=== PATIENT | male | born 1985 | race African-American/Black ===

== ENCOUNTER 2017-06-01 02:29 | Inpatient (IN) | payer OTHER ==
[~2017-06-01] VITALS: Ht 188 cm; Wt 83.0 kg
[~2017-06-01 02:29] MED LIST: ADA30 PO; APR10 PO; COLACE100 MG PO; CORE25 PO; HYDROCHLOROTH12.5 MG PO; NORCO1 TA2 PO; ZESTRIL40 MG PO
--- NOTE | 2017-06-01 03:10 | NUR ---
PT AWARE OF NEED FOR URINE SAMPLE, UNABLE TO PROVIDE URINE AT THIS TIME. URINAL LEFT AT BEDSIDE.
--- NOTE | 2017-06-01 03:15 | NUR ---
PT PRESENTS TO ED WITH C/O LUQ ABD PAIN X1 DAY. PT REPORTS VOMITING, DENIES DIARRHEA OR CONSTIPATION. PT REPORTS HX OF PANCREATITIS. PT STATES HE BINGE DRINKS AND LAST DRINK HE HAD WAS YESTERDAY MORNING. RESPIRATIONS EVEN AND UNLABORED. NO ACUTE DISTRESS NOTED. BED IN LOW POSITION. CALL LIGHT WITHIN REACH.
[2017-06-01 03:34] LABS: CALCIUM 8.8 mg/dL (8.5-10.1); CARBON DIOXIDE 29.9 mmol/L (21-32); CHLORIDE SERUM 103 mmol/L (98-107); CREATININE SERUM 1.1 mg/dL (0.7-1.3); GFR1 > 60 mL/min; GLUCOSE SERUM 131 mg/dL (74-106); POTASSIUM SERUM 3.8 mmol/L (3.5-5.1); SODIUM SERUM 142 mmol/L (136-145)
[2017-06-01 03:39] LABS: ALBUMIN 4.1 g/dL (3.4-5.0); ALKALINE PHOSPHATASE 58 U/L (46-116); ALT/SGPT 87 U/L (16-63); AST/SGOT 112 U/L (15-37); BILIRUBIN TOTAL 0.5 mg/dL (0.20-1.00); LIPASE 568 IU/L (73-393)
[2017-06-01 03:51] LABS: BASOPHIL % 0.5 % (0-2); PLATELET COUNT 185 x10^3mcL (130-400)
--- NOTE | 2017-06-01 03:52 | NUR ---
PT C/O ABD PAIN 07/31. MD NOTIFIED, WILL MEDICATE PER MD ORDERS.
--- NOTE | 2017-06-01 04:09 | NUR ---
PT STATES NOT TAKING ANY HOME MEDS AT THIS TIME.
--- NOTE | 2017-06-01 05:14 | NUR ---
PT TO CT SCAN VIA GURNEY, NO ACUTE DISTRESS NOTED.
--- NOTE | 2017-06-01 05:27 | NUR ---
RESIDENT NOTIFIED OF PT BP, NO FURTHER ORDERS AT THIS TIME.
[2017-06-01 05:30] LABS: PHOSPHOROUS 4.2 mg/dL (2.5-4.9)
[2017-06-01 05:35] LABS: CHOLESTEROL/HDL RATIO 1.7; T3 TOTAL 0.96 ng/mL
[2017-06-01 05:39] VITALS: BP 165/104
[2017-06-01 05:45] LABS: FREE T4 1.11 ng/dL (0.76-1.46); FREE THYROXINE INDEX 2.9 ug/dL (1.4-4.5); T4(THYROXINE) 7.3 ug/dL (4.7-13.3)
[2017-06-01 06:14] VITALS: BP 165/104
--- NOTE | 2017-06-01 06:21 | NUR ---
NEWLY ADMITTED 31 YEARS OLD, ALERT AND ORIENTED, PLEASANT AND COOPERATIVE. STILL C/O ABDOMINAL PAIN 05/30 AND PT STATED HE IS NAUSEAUS ALSO WANTED PAIN MEDICATIONS AND FOR NAUSEA. PT STATED HE DRINKS ALCOHOL BUT DO NOT SMOKE ACCORDING TO PT. LUNGS CLEAR ON AUCULTATIONS BILATERALLY UPPER AND LOWER BASES. BOWEL SOUNDS ACTIVE AND PRESENT, NO DISTENTION, NOTED HE HAS TATTOOS OVER HIS BODY. HEPLOCK IN THE RIGHT AC. PATENT AND INTACT. MADE COMFORTABLE IN BED. CALL LIGHT WITHIN EASY REACH.
--- NOTE | 2017-06-01 06:34 | NUR ---
C/O ABDOMINAL PAIN 05/30. MEDICATED WITH MORPHINE 2 MG IVPUSH. WILL MONITOR.
--- NOTE | 2017-06-01 07:00 | NUR ---
STARTED IV NS AT 150 ML PER HOUR INFUSING WELL IN THE RIGHT FOREARM ANGIOCATH GUAGE 20 PATENT AND INTACT, ATIVAN 1 MG PO FOR ETOH PROTOCOL AND ALSO RECEIVED MRPHINE 2 MG IVPUSH. WILL MONITOR.
--- NOTE | 2017-06-01 07:10 | NUR ---
REPORT RECEIVED FROM NOC SHIFT RN. UPDATES PROVIDED, ALL QUESTIONS ANSWERED ALL CONCERNS ADDRESSED. WILL CONTINUE TO MONITOR PATIENT.
--- NOTE | 2017-06-01 07:20 | NUR ---
PATIENT ASSESSED AT THIS TIME. PATIENT IS CALMY LYING IN BED. NO DISTRESS NOTED, PATIENT IS ON ROOM AIR, IS NPO EXCEPT MEDS. IV TO RAC NOTED WITH NS AT 150 ML/HR INFUSING, SITE PATENT DRESSING CDI. PATIENT IS ALERT AND ORIENTED X4, PUPILS ARE 3 MM AND BRISK BILATERALLY. PATIENT HAS NO HX OF CVA OR ALZHEIMERS AND NO SEDATION AT THIS TIME. PATIENT TRACHEA IS MIDLINE, NO SCLERAL EDEMA NOTED, NO SUPPLEMENTAL OXYGEN OR TUBE FEEDING IN PLACE. PATIENT LUNG SOUNDS ARE CLEAR ALEJANDRO, CHEST RISES SYMMETRICALLY, PATIENT ABDOMEN IS SOFT AND ROUND AND EXHIBITS PAIN TO EPIGASTRIC AREA 3/10. THIS IS A TOLERABLE PAIN LEVEL FOR PATIENT. BOWEL SOUNDS ARE ACTIVE IN ALL 4 QUADRANTS. NO BM NOTED AT THIS TIME, PATIENT IS VOIDING TO HANDHELD URINAL, NO URINE NOTED. PATIENT HAS ACTIVE ROM TO ALL EXTREMITIES, NO OBVIOUS CONTRACTURES OR DEFORMITIES NOTED.
--- NOTE | 2017-06-01 07:34 | NUR ---
ULTRASOUND BEDSIDE FOR BLE VENOUS AND ARTERIAL STUDY. WILL CONTINUE TO MONITOR PATIENT.
--- NOTE | 2017-06-01 07:45 | NUR ---
DR TATUM IS ROUNDING WITH RESIDENTS AT THIS TIME. UPDATES PROVIDED, NO NEW ORDERS RECEIVED. WILL CONTINUE TO MONITOR PATIENT.
[2017-06-01 07:47] LABS: UA SPECIFIC GRAVITY >=1.030 (1.005-1.035); microscopic required? YES; urine erythrocyte NEGATIVE (NEGATIVE)
--- NOTE | 2017-06-01 08:00 | NUR ---
PATIENT RHYTHM IS NSR AT THIS TIME. WILL CONTINUE TO MONITOR PATIENT.
[2017-06-01 08:10] LABS: AMPHETAMINE QUAL UR NONE DETECTED (NEG <=1000)
--- NOTE | 2017-06-01 09:33 | NUR ---
PATIENT IS COMPLAINING OF 9/10 PAIN AT THIS TIME IN THE EPIGASTRIC REGION, MORPHINE 2 MG IS DUE AND IS TO BE GIVEN. WILL CONTINUE TO MONITOR PATIENT.
--- NOTE | 2017-06-01 10:21 | NUR ---
I HAVE REVIEWED THE DATA COLLECTION BY RN (NAME):MARIUSZ ANDERSEN ENTERED ON (DATE/TIME):06/01/17 1030 I CONCUR WITH THE DATA AND ANY EXCEPTIONS OR COMMENTS ARE LISTED BELOW:
[2017-06-01 11:04] VITALS: BP 170/104
--- NOTE | 2017-06-01 14:25 | NUR ---
PATIENT REQUESTING TO SPEAK W/MD REGARDING PAIN MEDICATION, DR VILLARREAL PAGED.
[2017-06-01 14:32] VITALS: BP 164/109
--- NOTE | 2017-06-01 14:43 | NUR ---
DR VILLARREAL AT BEDSIDE TO DISCUSS PAIN MEDS PER PT'S REQUEST, PT ASLEEP, AROUSABLE TO LIGHT TOUCH, DROWSY, MD WILL RETURN AT LATER TIME.
--- NOTE | 2017-06-01 15:53 | NUR ---
DR NYE AT BEDSIDE TO EVALUATE, WILL F/U WITH NEW OR CHANGED ORDERS.
--- NOTE | 2017-06-01 15:58 | NUR ---
AWAKE AND ALERT, REQUESTING PAIN MED FOR ABD PAMELLA 5/10, WILL ADMIN ORDERED, CALL LIGHT WITHIN REACH, WILL CONTINUE TO MONITOR FOR SAFETY AND ADEQUATE PAIN CONTROL. .
--- NOTE | 2017-06-01 17:32 | NUR ---
PT REPORTS BEING HYPERTENSIVE FOR ABOUT 9YRS, DOES NOT TAKE ANY MEDICATIONS AT HOME, IS ASYMPTOMATIC, DR VILLARREAL CONSULTED REGARDING CURRENT BP 170/112, HR 82, MD WILL ENTER NEW ORDERS, WILL PROCEED ACCORDINGLY.
[2017-06-01 17:33] VITALS: BP 170/112
--- NOTE | 2017-06-01 18:35 | NUR ---
RESTIG IN BED, AROUSABLE TO LIGHT NOISE, REPORTS CONTINUED LUQ PAIN, PAIN MEDS ARE HELPING, CURRENT LEVEL IS 3/10, DENIES S&S OF HYPERTENSION, NEW BP MED ORDERS ENTERED, WILL ENDORSE CARE TO NIGHT NURSE.
--- NOTE | 2017-06-01 19:47 | NUR ---
C/O ABDL PAIN 07/31 DURING INITIAL ROUNDS ASKING FOR DILAUDID STATED THAT MORPHINE NOT HELPING MUCH, MD ALREADY AWARE AWAITING FOR ORDERS, PT WANTED TO HAVE MORPHINE WHILE WAITING FOR DILAUDID TO BE ORDERED, DENIES NAUSEA OR VOMITING, MORPHINE GIVEN INDICATED, WILL FOLLOW UP MD RE CHANGES OF PAIN MEDICATION ORDER.
--- NOTE | 2017-06-01 20:23 | NUR ---
PAGED DR RUIZ RE PT'S REQUEST TO GET DILAUDID FOR PAIN INSTEAD OF MORPHINE, DR RUIZ CALLED BACK AND SHE WILL TALK TO THE PT FIRST BEFORE MAKING ANY CHANGES, SHIFT ASSESSMENT DONE, PT IS AAO X4 VERBAL, NO DISTRESS, SR IN THE MONITOR, REFUSED SCD'S FOR DVT PROPHYLAXIS, IVF NS INFUSING @ 150CC/HR RFA, IV ACCESS PATENT NON INFIL, ATTENDED NEEDS CALL LIGHT AT REACH CONT TO MONITOR.
[2017-06-01 21:43] VITALS: BP 170/104
--- NOTE | 2017-06-01 22:09 | NUR ---
DILAUDID 0.5 MG IVP GIVEN FOR C/O ABDL PAIN 8/10 PER ASSESSMENT BP 170/100 ASYMTOMATIC, CONT TO MONITOR.
--- NOTE | 2017-06-02 02:15 | NUR ---
UNABLE TO GIVE COREG PO X1 DOSE @ 2230 PT IS ASLEEP JUST RECEIVED DILAUDID IVP EARLIER, WILL OFFER AGAIN LATER WHEN AWAKE.
--- NOTE | 2017-06-02 02:17 | NUR ---
UNABLE TO GIVE COREG PO @ 2230 PT IS ASLEEP JUST RECEIVED IVP DILAUDID @ 2200 PT AWAKE AT THIS TIME BP STILL ABOVE 160'S HR 78 COREG PO GIVEN X1 DOSE INDICATED.
--- NOTE | 2017-06-02 05:31 | NUR ---
JUST MEDICATED FOR ABLD PAIN 6/10 PER ASSESSMENT NOT IN ANY DISTRESS, CONT TO MONITOR.
--- NOTE | 2017-06-02 05:53 | NUR ---
BP 170/119 RECHECKED X2 STILL ON THE HIGH SIDE, JUST MEDICATED FOR PAIN WITH DILAUDID IVP, REPOSITIONED TO COMFORT, HYDRALAZINE IVP GIVEN PER PRN ORDER CONT TO MONITOR.
[2017-06-02 05:55] VITALS: BP 170/119
[2017-06-02 06:20] LABS: CALCIUM 8.8 mg/dL (8.5-10.1); CARBON DIOXIDE 22.7 mmol/L (21-32); CHLORIDE SERUM 96 mmol/L (98-107); CREATININE SERUM 0.8 mg/dL (0.7-1.3); GFR1 > 60 mL/min; GLUCOSE SERUM 110 mg/dL (74-106); LACTIC DEHYDROGENASE (LDH) 166 U/L (100-190); LIPASE 1009 IU/L (73-393); POTASSIUM SERUM 3.5 mmol/L (3.5-5.1); SODIUM SERUM 133 mmol/L (136-145)
[2017-06-02 06:26] LABS: AMYLASE 145 U/L (25-115)
[2017-06-02 06:46] VITALS: BP 147/97
--- NOTE | 2017-06-02 06:51 | NUR ---
PT FEELING NAUSEOUS NO VOMITING AT THIS TIME, ZOFRAN 4MG IVP GIVEN PER PRN ORDER, REPOSITIONED FOR COMFORT, RECHECKED BP AFTER GIVING HYDRALAZINE IV BP 147/97 (MAP 113) hr 82, CONT TO MONITOR.
--- NOTE | 2017-06-02 07:10 | NUR ---
REPORT RECEIVED FROM NOC SHIFT RN. UPDATES PROVIDED, ALL QUESTIONS ANSWERED ALL CONCERNS ADDRESSED. WILL ASSUME CARE AND ASSESS SHORTLY.
--- NOTE | 2017-06-02 07:45 | NUR ---
PATIENT IS RESTING CALMLY IN BED AT THIS TIME. PATIENT IS ON ROOM AIR, NPO WITH N/V NOTED. PATIENT HAS IV TO RIGHT FOREARM WITH NS AT 150 ML/HR RUNNING. PUPILS ARE 2 MM AND BRISK BILATERALLY, PULSES ARE STRONG ALEJANDRO, CAP REFILL IS <3 SECONDS ALEJANDRO, LUNGS ARE CLEAR ALEJANDRO, CHEST RISES SYMMETRICALLY. SKIN IS WARM AND DRY. PATIENT HAS ACTIVE ROM TO ALL EXTREMITIES AND IS ABLE TO AMBULATE. PATIENT IS REQUESTING PAIN MEDS. WILL CONTINUE TO MONITOR.
--- NOTE | 2017-06-02 07:55 | NUR ---
PATIENT VOMITED AT THIS TIME, 200 ML NOTED. ZOFRAN GIVEN 1 HOUR AGO. WILL CONTINUE TO MONITOR PATIENT.
--- NOTE | 2017-06-02 08:52 | NUR ---
DR. TATUM ROUNDING WITH RESIDENTS AT THIS TIME. UPDATES PROVIDED, PATIENT TO CONTINUE ON NPO EXCEPT MEDS STATUS. WILL CONTINUE TO MONITOR PATIENT.
[2017-06-02 11:25] VITALS: BP 117/112
--- NOTE | 2017-06-02 11:26 | NUR ---
PATIENT IS HYPERTENSIVE AT THIS TIME WITH A BP OF 170/112 NOTED. 10 MG OF HYDRALAZINE GIVEN. WILL CONTINUE TO MONITOR PATIENT.
--- NOTE | 2017-06-02 11:36 | NUR ---
I HAVE REVIEWED THE DATA COLLECTION BY RN (NAME):MARIUSZ ANDERSEN ENTERED ON (DATE/TIME):06/02/17 1040 I CONCUR WITH THE DATA AND ANY EXCEPTIONS OR COMMENTS ARE LISTED BELOW:
[2017-06-02 11:41] VITALS: BP 152/109
--- NOTE | 2017-06-02 11:41 | NUR ---
BP 152/105 AT THIS TIME. WILL CONTINUE TO MONITOR PATIENT.
--- NOTE | 2017-06-02 14:54 | NUR ---
Initial Nutrition Assessment Dx: Pancreatitis PMHx: Sickle cell disease (Dec 2016), HTN PSHx: None Labs: (06/01): AST: 112H, ALT:87H, TH, HDL:91H (06/02) Na:133L, BH, Amylase:145H, trending up, Lipase:1009H, trending up, A1C:6.5H, Meds: Colace, Coreg, Hydralazine, Nitrostat, Norvasc, Tenorim, D10, Folic Acid, Humulin, Protonix, NS IVF, Theragran-M, Vit B1, Zofran. Diet: NPO PO Intake: NPO since admit Ht: 74 in, 6'2 Wt: # 183lb. 83.26kg BMI:23.6 kg/m2 (normal weight) IBW:190# 86.36kg %IBW: 96% UBW: 185# Wt hx: (07/2016) 195#, 88.6kg, Age:31 Food Allergies: None Skin: intact Phu 21 Edema: None GI: Last BM: (05/30) Bowel sounds present, pain noted to epigastric region. Abd soft and round. Nursting Trigger: N/V/D>3 days. Problem with: N: Yes V: x 7 per pt D: No C: No Problems with: Chewing: No Swallowing: No Current appetite: Poor Recent wt change: 195#,89kg (07/2016) %wt change:6% Vitamin/Supplement use: No Special diet at home: No Physical activity: Yes Education: Pt declined education and had no questions about low fat diet for pancreatits or diabetes. Pt admitted with pancreatitis with elevated lipase and amylase. Pt has a history of heavy ETOH use (750 ml per day x 1 wk) and has been previously admitted with the same diagnosis. Pt c/o BL epigastric pain in the upper left and right quadrants of the abdomen. Pt will remain NPO until lipase and amylaseWNL, per H&P note (06/01). Pts amylase and lipase levels trending up and pt NPO x 2 days. During visit, pt was in pain and reports emesis x 7 today. Estimated Nutritional Needs Based on current body weight 83kg, 183lb. Energy: 2100 kcal/d (25kcal/kg) Protein: 110 g/d (1.3g/kg) pancreatits Fluid: 2075 ml/d (1 ml/kcal) or per doctor Nutrition Diagnosis 1. Altered nutriton labs related to pancreatitis as evidenced by elevated lipase levels. 2. 2. Altered GI function related to pancreatitis as evidenced by emesis x 7 per pt. Intervention 1. Recommend advance diet as tolerated to clear liquid then low fat when medically appropriate. Monitor/Evaluate Goal: NPO <5-7 days Monitor: Diet advancement, Labs (liapse), GI function F/U in 2-3 days as High risk (06/04-)
--- NOTE | 2017-06-02 14:59 | NUR ---
1. Recommend advance diet as tolerated to clear liquid then low fat when medically appropriate.
[2017-06-02 17:55] VITALS: BP 177/122
--- NOTE | 2017-06-02 19:25 | NUR ---
REPORT GIVEN TO NOC SHIFT RN, UPDATES PROVIDED, ALL QUESTIONS ANSWERED ALL CONCERNS ADDRESSED. WILL ENDORSE CARE.
--- NOTE | 2017-06-02 19:50 | NUR ---
SHIFT REASSESSMENT DONE.PATIENT ALERT,AROUSED EASILY NURSING ROUNDS ON ETOH PROTOCOL,ATIVAN PO.BREATHING EASY.MOVING ALL EXT WELL.ASSIST R/T ETOH PRN RESTROOM.NS AT 150 CC/ HOUR.TELE 22 SR.NPO X MED.HAS MANY SKIN TATOOSVOIDING,URINAL AT BEDSIDE.CALL LIGHT IN REACH.
--- NOTE | 2017-06-02 20:08 | NUR ---
PATIENT WANTING PAIN SHOT AND GIVEN DILAUDID 0.5 MG.
--- NOTE | 2017-06-02 20:13 | NUR ---
PATIENT WANTING PAIN MED,DILAUDID 0.5 MG IVP.ALSO PM MED ALREADY GIVEN.SWALLOWS WELL.IVF INFUSING AT 175 CC/ HOUR.
--- NOTE | 2017-06-02 21:48 | NUR ---
PATIENT GIVEN HYDRALAZINE IVP ORDERE FOR BP 166.PATIENT HAS HTN HX.ONGOING PROBLEM HE SAYS.
[2017-06-02 22:46] VITALS: BP 155/89
[2017-06-03] VITALS (7 sets, daily range): BP systolic 137–176; BP diastolic 83–115; Ht 188 cm; Wt 83.0 kg
--- NOTE | 2017-06-03 00:59 | NUR ---
PATIENT CHECK AT INTERVALS,VOIDING PER URINAL,EMPTIED AND MEASURED.REMAINS NPO AMYLASE AND LIPASE ELEVATED,PANCREATITIS DX.
--- NOTE | 2017-06-03 05:30 | NUR ---
I AND O MEASURED.USING URINAL.C/O PAIN,PAIN MED 4X THIS SHIFT.NS AT 175 CC/ HOUR INFUSING.WILL ENDORSE TO NEXT SHIFT.
[2017-06-03 06:23] LABS: CALCIUM 9.3 mg/dL (8.5-10.1); CARBON DIOXIDE 23.2 mmol/L (21-32); CHLORIDE SERUM 98 mmol/L (98-107); GFR1 > 60 mL/min; GLUCOSE SERUM 111 mg/dL (74-106); LACTIC DEHYDROGENASE (LDH) 177 U/L (100-190); POTASSIUM SERUM 4.1 mmol/L (3.5-5.1); SODIUM SERUM 132 mmol/L (136-145)
--- NOTE | 2017-06-03 07:05 | NUR ---
PT SLEEPING IN BED. EFFORTLESS BREATHING ON ROOM AIR. IV INFUSING WELL TO RFA. BED IN LOWEST POSITION, CALL LIGHT WITHIN REACH.
--- NOTE | 2017-06-03 12:30 | NUR ---
NS INFUSION DC'D. D5NS INFUSION STARTED AT 80ML/HR PER ORDER. PER MD PT TO BE ON D5NS AND CLEAR LIQUIDS TOLERABLE. WILL CONTINUE TO MONITOR.
--- NOTE | 2017-06-03 14:25 | NUR ---
BP: 176/115 HR: 87 HYDRALAZINE ADMINISTERED PER EMAR. PT TOLERATED WELL. WILL CONTINUE TO MONITOR.
--- NOTE | 2017-06-03 15:30 | NUR ---
BP: POST HYDRALAZINE ADMINISTRATION 137/83, HR:109 CALL LIGHT WITHIN REACH.
--- NOTE | 2017-06-03 18:45 | NUR ---
BP: 172/102, HR:101 ADMINISTERED NITROSTAT AND COREG PER EMAR. PT TOLERATED WELL. REASSESSEMENT BP: 138/84, HR: 101 CALL LIGHT WITHIN REACH.
--- NOTE | 2017-06-04 00:05 | NUR ---
RESTING IN BED, AWAKE AND ALERT. BREATHING EVEN AND UNLABORED, ON RA. STATES PAIN IS TOLERABLE AT THIS TIME, WAS MEDICATED PRN. IV PATENT AND INFUSING. BED IN LOW POSITION, CALL LIGHT IN REACH. WILL CONTINUE TO MONITOR.
[2017-06-04 05:18] VITALS: BP 142/99
--- NOTE | 2017-06-04 06:06 | NUR ---
RESTING IN BED WITH EYES CLOSED. AWAKENS EASILY TO VERBAL STIMULI. BREATHING EVEN AND UNLABORED, ON RA. NO ACUTE DISTRESS NOTED. IV PATENT AND INFUSING. BED IN LOW POSITION, CALL LIGHT IN REACH. WILL ENDORSE CARE TO ONCOMING RN.
[2017-06-04 06:33] LABS: CALCIUM 9.1 mg/dL (8.5-10.1); CARBON DIOXIDE 27.9 mmol/L (21-32); CHLORIDE SERUM 97 mmol/L (98-107); CREATININE SERUM 0.9 mg/dL (0.7-1.3); GFR1 > 60 mL/min; GLUCOSE SERUM 142 mg/dL (74-106); POTASSIUM SERUM 3.7 mmol/L (3.5-5.1); SODIUM SERUM 134 mmol/L (136-145)
--- NOTE | 2017-06-04 07:45 | NUR ---
AWAKE,ALERT AND ORIENTED. DENIES ANY PAIN AT THIS TIME. CALL LIGHT W/ IN REACH'ABLE TO AMBULATE IN THE BATHROOM AND VOIDING WELL. CONT. IV FLUIDS ORDERED.NO ACUTE DISTRESS NOTED. FULL LIQUID DIET JACOBO. WELL.WILL CONT. PLAN OF CARE.
[2017-06-04 08:58] VITALS: BP 148/87
--- NOTE | 2017-06-04 09:10 | NUR ---
DR. DEWEY WAS HERE W/ OTHER MEDICAL STAFF AND UPDATED PT. PLAN OF CARE.
[2017-06-04 13:37] VITALS: BP 161/109
[2017-06-04] MEDS ORDERED: FOL1 PO (14:57)
[2017-06-04] MEDS ORDERED: THI100 PO (14:58)
[2017-06-04] MEDS ORDERED: LORAZEPAM1 MG PO (14:59)
--- NOTE | 2017-06-04 17:00 | NUR ---
PT. B/P ELEVATED 148/105 PT. ASSYMPTOMATIC DENIES ANY DIZZINESS,DR. ALEXIS NOTIFIED AND MADE AWARE.PT. NO ACUTE DISTRESS NOTED.CALL LIGHT W/ IN REACH.
[2017-06-04 17:50] VITALS: BP 149/103
--- NOTE | 2017-06-04 18:00 | NUR ---
PT. HAD SHOWER JACOBO. WELL DENIES ANY PAIN AT THIS TIME.CALL LIGHT W/ IN REACH.
--- NOTE | 2017-06-04 19:10 | NUR ---
A&0 X 4. LUNG SOUNDS CLEAR AND UNLABORED, ON RA. TELE D/C, PT NOW MEDSURG. RADIAL AND PEDAL PULSES PALPABLE, NO EDEMA NOTED. BOWEL SOUNDS ACTIVE X 4 QUADRANTS, PT NPO SINCE DINNER. VOIDS IN URINAL WITHOUT DIFFICULTLY. SKIN INTACT. IV TO RIGHT FA PATENT AND INFUSING, NO REDNESS OR SWELLING. C/O ABD PAIN /10, WILL MEDICATE PRN. BP: 157/99, WILL CONTINUE TO MONITOR AFTER ADMINISTERING SCHEDULED BP MEDS. BED IN LOW POSITION, CALL LIGHT IN REACH. INSTRUCTED TO CALL FOR ASSISTANCE.
[2017-06-04 20:57] VITALS: BP 157/99
--- NOTE | 2017-06-05 00:10 | NUR ---
RESTING IN BED WITH EYES CLOSED. AWAKENS EASILY TO VERBAL STIMULI. BREATHING EVEN AND UNLABORED ON RA. NO ACUTE DISTRESS NOTED. IV PATENT AND INFUSING. BED IN LOW POSITION, CALL LIGHT IN REACH. WILL CONTINUE TO MONITOR.
[2017-06-05 05:27] VITALS: BP 157/105
--- NOTE | 2017-06-05 06:05 | NUR ---
RESTING IN BED WITH EYES CLOSED. EASILY AWAKENS TO VERBAL STIMULI. BREATHING EVEN AND UNLABORED, ON RA. NO ACUTE DISTRESS NOTED. IV PATENT AND INFUSING. WILL ENDORSE CARE TO ONCOMING RN.
[2017-06-05 06:11] LABS: CALCIUM 9.5 mg/dL (8.5-10.1); CARBON DIOXIDE 29.7 mmol/L (21-32); CHLORIDE SERUM 104 mmol/L (98-107); CREATININE SERUM 1.1 mg/dL (0.7-1.3); GFR1 > 60 mL/min; GLUCOSE SERUM 131 mg/dL (74-106); POTASSIUM SERUM 3.7 mmol/L (3.5-5.1); SODIUM SERUM 144 mmol/L (136-145)
[2017-06-05 07:26] VITALS: BP 138/76
--- NOTE | 2017-06-05 07:45 | NUR ---
AWAKE,ALERT AND ORIENTED. DENIES ANY ABD. PAIN AT THIS TIME. BREAKFAST FULL LIQUID DIET JACOBO. WELL. CONT. IV FLUIDS ORDERED AMBULATORY VOIDING WELL IN THE BATHROOM.NO ACUTE DISTRESS NOTED. WILL CONT. PLAN OF CARE.
--- NOTE | 2017-06-05 09:00 | NUR ---
DR. DEWEY HERE W/ OTHER MEDICAL STAFFS MADE ROUNDS AND UPDATED PT. PLAN OF CARE.
[2017-06-05 09:35] VITALS: BP 140/79
[2017-06-05] MEDS ORDERED: COREG12.5 MG PO (13:48)
[2017-06-05] MEDS ORDERED: COL100 PO (13:49)
[2017-06-05] MEDS ORDERED: PER5 PO (13:49)
[2017-06-05] MEDS ORDERED: NOR10 PO (13:50)
[2017-06-05] MEDS ORDERED: MOT400 PO (13:51)
[2017-06-05 14:52] VITALS: BP 140/79
--- NOTE | 2017-06-05 16:00 | NUR ---
PT. WENT HOME W/ STABLE CONDITION AMBULATORY ACC. W/ HIS GIRL FRIEND,DISCHARGED INSTRUCTIONS AND PRESCRIPTIONS GIVEN AND DISCUSSED TO PT.AND VERBALIZED UNDERSTANDING OF INSTRUCTIONS GIVEN NO ACUTE DISTRESS NOTED.
== END 2017-06-05 15:51 | disposition home or self-care (01) | DRG 282 ==
LOC: ED 02:29 → DU 04:44 → MU 06-04 21:19
PROVIDERS: Emergency Medicine; Student in an Organized Health Care Education/Training Program; ADMIT Family Medicine
DX: K85.90 Acute pancreatitis without necrosis or infection, unspecified (principal); E11.65 Type 2 diabetes mellitus with hyperglycemia; I16.0 Hypertensive urgency; D57.1 Sickle-cell disease without crisis; E78.1 Pure hyperglyceridemia; I10 Essential (primary) hypertension; R80.9 Proteinuria, unspecified; F10.239 Alcohol dependence with withdrawal, unspecified; Y90.9 Presence of alcohol in blood, level not specified; Z91.14 Patient's other noncompliance with medication regimen; Z79.84 Long term (current) use of oral hypoglycemic drugs; Z88.6 Allergy status to analgesic agent; Z88.8 Allergy status to other drugs, medicaments and biological substances; Z88.5 Allergy status to narcotic agent; Z82.49 Family history of ischemic heart disease and other diseases of the circulatory system
CPT/HCPCS: 82962; 83880; 84439; C9113; G0480; J0360; J1170; J1885; J2060; J2270; J2405; J7030; J7042; Q0092

== ENCOUNTER 2017-07-18 11:04 | Emergency (ER) | payer OTHER ==
[~2017-07-18] VITALS: Ht 188 cm; Wt 81.3 kg
[~2017-07-18 11:04] MED LIST changes: +COL100 PO; +COREG12.5 MG PO; +FOL1 PO; +LORAZEPAM1 MG PO; +MOT400 PO; +NOR10 PO; +PER5 PO; +THI100 PO
[2017-07-18 13:40] LABS: BASOPHIL % 0.5 % (0-2); PLATELET COUNT 216 x10^3mcL (130-400); RED CELL DISTRIBUTION WIDTH 13.3 % (11.5-14.5)
[2017-07-18 13:51] LABS: UA SPECIFIC GRAVITY 1.025 (1.005-1.035); microscopic required? YES; urine erythrocyte NEGATIVE (NEGATIVE)
[2017-07-18 13:52] LABS: CALCIUM 10.1 mg/dL (8.5-10.1); CARBON DIOXIDE 30.2 mmol/L (21-32); CHLORIDE SERUM 93 mmol/L (98-107); CREATININE SERUM 1.1 mg/dL (0.7-1.3); GFR1 > 60 mL/min; GLUCOSE SERUM 101 mg/dL (74-106); POTASSIUM SERUM 3.6 mmol/L (3.5-5.1); SODIUM SERUM 136 mmol/L (136-145)
[2017-07-18 14:03] LABS: ALBUMIN 4.8 g/dL (3.4-5.0); ALKALINE PHOSPHATASE 60 U/L (46-116); ALT/SGPT 61 U/L (16-63); AMYLASE 81 U/L (25-115); AST/SGOT 87 U/L (15-37); CHOLESTEROL 253 mg/dL (<200); HDL CHOLESTEROL 125 mg/dL (40-60); LIPASE 65 IU/L (73-393); MAGNESIUM 2.2 mg/dL (1.8-2.4); T4(THYROXINE) 8.4 ug/dL (4.7-13.3); TOTAL PROTEIN, SERUM 9.3 g/dL (6.4-8.2)
[2017-07-18 14:07] LABS: AMPHETAMINE QUAL UR NONE DETECTED (NEG <=1000)
[2017-07-18 16:13] VITALS: BP 165/105
== END 2017-07-18 16:13 | disposition home or self-care (01) ==
LOC: ED 11:04
PROVIDERS: Emergency Medicine
DX: F10.20 Alcohol dependence, uncomplicated (principal); I10 Essential (primary) hypertension; E11.9 Type 2 diabetes mellitus without complications
CPT/HCPCS: 82962; 83880; G0480; J3490; J7030